=== PATIENT | male | born 1975 | race Two or more races ===

== ENCOUNTER 2016-11-20 08:39 | Emergency (ER) | payer OTHER ==
--- NOTE | ~2016-11-20 | CR63 ---
[facility] A Service of [facility] & [facility] RADIOLOGY TEXT RESULTS PATIENT: KULWANT EWING LOCATION: [facility] : 79 UNIT #: [id number] AGE: [address]: Sohail Maldonado MD SEX: M ORDER DR: [id number] [facility] [address] [place], [place] [address] [id number] E MR#: [id number] Acc #: [id number] NAME: KULWANT EWING : 1975 SEX: M STUDY DATE/TIME: 11/20/2016 10:01 UNIT: [facility] ROOM: STUDY DESCRIPTION: CR Chest 2 View Attending Physician: Sohail Maldonado M.D. Ordering Physician: Sohail Maldonado M.D. Primary Care Physician: No Primary Care Physician MEDICAL IMAGING REPORT This report is preliminary unless electronic signature is present EXAM PA and lateral chest. INDICATIONS Chest pain for 5 days. FINDINGS PA and lateral examination of the chest upright shows a good expansion of the parenchyma with a normal distribution of the pulmonary vascularity. There is no indication of congestion, effusion, infiltrate, tumor, or nodular density. The pleural reflections and diaphragmatic contours are normal. The cardiac silhouette and mediastinal anatomy is within normal limits. IMPRESSION Normal chest. Dictated by... Franki Raman M.D. THIS IS AN ELECTRONICALLY VERIFIED REPORT Franki Raman M.D. at 11/20/2016 4:54 PM BEE/shaheed TD: 11/20/2016 12:20 JOB #: [id number] MEDICAL IMAGING REPORT Page 1 of 1 COPY
--- NOTE | ~2016-11-20 | EKG ---
PATIENT: KULWANT EWING UNIT #: [id number] Ventricular Rate: 58 BPM Atrial Rate: 58 BPM P-R Interval: 134 ms QRS Duration: 90 ms Q-T Interval: 412 ms QTC Calculation(Bezet): 404 ms P [place]: 67 degrees Calculated R [place]: 81 degrees Calculated T [place]: 62 degrees Diagnosis Line: Sinus bradycardia Diagnosis Line: Otherwise normal ECG Diagnosis Line: Diagnosis Line: Confirmed by JUSTIN CRUZ MD ([id number]) on 11/21/2016 Diagnosis Line: 8:01:06 PM INTERPRETING MD: ANTHONY MILLARD
[2016-11-20 10:13] LABS: BASOPHIL% 0.7 % (0-2.5); EOSINOPHIL# 0.1 X10e3 (0-0.7); EOSINOPHIL% 1.8 % (0.0-7.0); HEMATOCRIT 46.2 % (38.0-50.0); HEMOGLOBIN 15.3 gm/dL (13.0-16.0); LYMPHOCYTE# 1.4 X10e3 (1.0-3.5); LYMPHOCYTE% 27.3 % (17.0-45.0); MEAN CELL VOLUME 88.6 FL (83-96); MEAN CORPUSCULAR HEMOGLOBIN 29.4 PG (28-34); MEAN CORPUSCULAR HGB CONC 33.2 g/dL (30-36); MEAN PLATELET VOLUME 7.7 FL (6.5-11.5); MONOCYTE# 0.5 X10e3 (0-1.0); MONOCYTE% 10.1 % (3.0-12.0); NEUTROPHIL# 3.1 X10e3 (1.5-7.1); NEUTROPHIL% 60.1 % (40-75); PLATELET COUNT 245 X10e3 (140-420); RED BLOOD COUNT 5.21 X10e (3.90-5.60); RED CELL DISTRIBUTION WIDTH 14.2 % (11.0-15.5); WHITE BLOOD COUNT 5.1 X10e3 (4.0-10.5)
[2016-11-20 10:19] LABS: DIFF IND NO
[2016-11-20 10:20] LABS: POC - CKMB <1.0 ng/mL (0.0-7.9); POC - TROPONIN <0.05 ng/mL (<=0.05)
[2016-11-20 10:37] LABS: ALBUMIN SERUM 4.2 g/dL (3.5-5.0); BILIRUBIN, DIRECT 0.1 mg/dL (0.0-0.2); BILIRUBIN,INDIRECT 0.6 mg/dL (0.0-0.9); BILIRUBIN,TOTAL 0.7 mg/dL (0.2-2.0); BUN/CREATININE RATIO 12.5; CALCIUM SERUM 8.7 mg/dL (8.4-10.2); CREATININE SERUM 0.8 mg/dL (0.6-1.4); GLOM FILT RATE Estimated 113.4 mL/min (>60); POTASSIUM 3.5 mmol/L (3.5-5.1); PROTEIN TOTAL SERUM 7.1 g/dL (6.0-8.3)
== END 2016-11-20 11:25 | disposition home or self-care (01) ==
LOC: CED 08:39
PROVIDERS: Emergency Medicine
DX: F41.9 Anxiety disorder, unspecified (principal); Z20.2 Contact with and (suspected) exposure to infections with a predominantly sexual mode of transmission; F19.10 Other psychoactive substance abuse, uncomplicated
CPT/HCPCS: 36415; 71020; 80048; 80076; 82553; 83880; 84484; 85025; 85379; 93005; 96372; 99284; J0696